=== PATIENT | female | born 1995 | race Caucasian/White ===

== ENCOUNTER 2017-10-22 14:26 | Emergency (ER) | payer OTHER ==
[~2017-10-22] VITALS: Ht 167.6 cm; Wt 55.7 kg
[2017-10-22 14:35] VITALS: Ht 167.6 cm; Wt 55.7 kg
[2017-10-22] MEDS ORDERED: SODIUM CHLORIDE 0.9% 1000ML 1,000 ML IV STA (14:45)
[2017-10-22] MEDS ORDERED: KETOROLAC TROMETHAMINE 30 MG/ML VIAL IV STA (14:45)
[2017-10-22] MEDS ORDERED: MULT-506 PO (15:02)
[2017-10-22] MEDS ORDERED: VENL150C56 PO (15:02)
[2017-10-22] MEDS ORDERED: IUD'IUD IU (15:02)
--- NOTE | 2017-10-22 15:11 | DIAGNOSTIC IMAGING REPORT ---
CHEST ONE VIEW PORTABLE CLINICAL HISTORY: 21 years-old Female presenting with Chest Pain. TECHNIQUE: Portable upright AP view of the chest was obtained. COMPARISON: 10/22/2017. FINDINGS: Cardiomediastinal silhouette normal. No focal opacity. No large effusion or pneumothorax. Osseous structures normal. Upper abdomen normal. IMPRESSION: 1. No acute cardiopulmonary disease. Electronically signed by: Javier Treviño M.D. 10/22/2017 3:10 PM Dictated Date/Time: 10/22/2017 3:09 PM
[2017-10-22 15:20] VITALS: O2SAT 100
[2017-10-22 15:47] LABS: ISTAT CREATININE 0.6 mg/dl (0.6-1.3); ISTAT IONIZED CALCIUM 1.14 mmol/l (1.12-1.32); ISTAT POTASSIUM 3.5 mEq/L (3.3-5.0)
[2017-10-22 15:48] LABS: EOS % 0.2 %; EOS ABS # 0.01 K/uL (0-0.5); HEMATOCRIT 37.4 % (37-47); HEMOGLOBIN 12.2 g/dL (12.0-16.0); IG# 0.01 K/uL (0.00-0.02); LYMPH % 24.1 %; LYMPH ABS # 1.37 K/uL (1.2-3.4); MEAN CELL VOLUME 83.5 fL (80-100); MEAN CORPUSCULAR HEMOGLOBIN 27.2 pg (25-34); MEAN CORPUSCULAR HGB CONC 32.6 g/dl (32-36); MEAN PLATELET VOLUME 9.9 fL (7.4-10.4); MONO ABS # 0.68 K/uL (0.11-0.59); NEUT % 63.5 %; NEUT ABS # 3.61 K/uL (1.4-6.5); PLATELET COUNT 209 K/uL (130-400); RED CELL DISTRIBUTION WIDTH CV 14.1 % (11.5-14.5); RED CELL DISTRIBUTION WIDTH SD 43.2 fL (36.4-46.3); WHITE BLOOD COUNT 5.68 K/uL (4.8-10.8)
[2017-10-22 16:03] LABS: BLOOD UREA NITROGEN 8 mg/dl (7-18); CALCIUM 8.7 mg/dl (8.5-10.1); CARBON DIOXIDE 28 mmol/L (21-32); CREATININE 0.79 mg/dl (0.60-1.20); GLUCOSE 72 mg/dl (70-99); POTASSIUM 3.5 mmol/L (3.5-5.1); SODIUM 140 mmol/L (136-145)
[2017-10-22] MEDS ORDERED: OPTIRAY 320 IV PRN (16:15)
--- NOTE | 2017-10-22 16:27 | DIAGNOSTIC IMAGING REPORT ---
(CHEST FOR PE) ANGIO WITH CLINICAL HISTORY: 21 years-old Female presenting with elevated d-dimer, shortness of breath, clinical concern for pulmonary embolus. TECHNIQUE: Multidetector CT angiography of the chest was performed after administration of intravenous contrast. 3-D volumetric and/or maximum intensity projection (MIP) images were subsequently reconstructed for review. IV contrast: 93 mL of Optiray 320. A dose lowering technique was used consistent with the principles of ALARA (as low as reasonably achievable). COMPARISON: Chest x-ray from earlier the same day. CT DOSE (mGy.cm): The estimated cumulative dose is 185.23 mGy.cm. FINDINGS: Documentation Improvement Specialist topogram: Unremarkable. Pulmonary vasculature: The study is adequate for assessment of the pulmonary vascular tree. No filling defect within the pulmonary arteries to suggest embolus. Main pulmonary artery is not enlarged. No flattening of the interventricular septum. No intracardiac filling defect. No reflux of contrast into the hepatic veins. Remaining chest: On soft tissue windows, normal thyroid and thoracic inlet. No axillary, supraclavicular, hilar, or mediastinal lymphadenopathy. Normal aorta. Normal heart size. Small left pleural effusion. No pericardial effusion. Upper abdomen normal. On lung windows, minimal dependent changes at the dependent left lower lobe. No other focal infiltrate or nodule. Airways patent. On bone windows, normal osseous structures. IMPRESSION: 1. No evidence of pulmonary embolus. 2. Left pleural effusion with minimal left lower lobe passive atelectasis. This is of unclear etiology. Electronically signed by: Javier Treviño M.D. 10/22/2017 4:25 PM Dictated Date/Time: 10/22/2017 4:21 PM
[2017-10-22 17:09] VITALS: BP 99/69; PULSE 80; TEMP 36.8; O2SAT 97
--- NOTE | 2017-10-22 21:07 | EMERGENCY ROOM VISIT NOTE ---
History Report prepared by Crystla: Maureen Brown Under the Supervision of: Dr. Mikey Orozco D.O. First contact with patient: 14:39 Chief Complaint: CARDIAC ASSESSMENT Stated Complaint: CHEST PAIN; HIGH D-DIMER LEVEL Nursing Triage Summary: Pt. reports left sided chest pain for last week that is worse with activity and deep breathing. Denies cough or shortness of breath. History of Present Illness The patient is a 21 year old female who presents to the Emergency Room with complaints of worsening chest pain starting 1 week ago. The pain started worsening 2 days ago. The pain is in the left side of her chest. Pain is sharp in nature. The pain worsens with movement, walking, twisting, turning, bending , and deep breaths. She had blood work today and was sent to the ED for an elevated D dimer. She denies any abdominal pain, nausea, vomiting, diarrhea, urinary symptoms, vaginal bleeding, vaginal discharge, cough, rhinorrhea, or sore throat. Her last bowel movement was yesterday. Her last menstrual period was 2 weeks ago. Patient denies diabetes, hypertension, hyperlipidemia, CAD, history of sudden at a young age, and smoking. Patient denies swelling of calves, recent trips, history of immobilization or recent surgery, prior history of DVT, hemoptysis, history of malignancy, or history of smoking. She has an IUD. She denies any recent trauma. Source of History: patient Onset: 1 week ago Position: chest (left) Timing: worsening Modifying Factors (Worsening): breathing, movement, other (walking) Associated Symptoms: No sorethroat, No cough, No nausea, No vomiting, No abdominal pain, No diarrhea, No urinary symptoms Review of Systems See HPI for pertinent positives & negatives. A total of 10 systems reviewed and were otherwise negative. Past Medical & Surgical No history of diabetes, hypertension, hyperlipidemia, CAD. Family History No family history of sudden at a young age. Social History Smoking Status: Never Smoker Occupation Status: [employer] Current/Historical Medications Scheduled Iud's (Paragard Intrauterine Digital Media Designer), 1 DOSE IU DIRECTED Multivitamin (Multivitamin), 1 TAB PO QAM Venlafaxine Hcl (Effexor Extended Rel), 150 MG PO QAM Allergies Coded Allergies: No Known Allergies (Unverified , 10/22/17) Physical Exam Vital Signs Date Time Temp Pulse Resp B/P (MAP) Pulse Ox O2 Delivery O2 Flow Rate FiO2 10/22/17 17:09 36.8 80 22 99/69 97 10/22/17 17:08 80 22 99/69 97 Room Air 10/22/17 16:32 80 22 98/59 100 Room Air 10/22/17 16:01 70 13 99 Room Air 10/22/17 16:00 91/67 10/22/17 15:31 86 15 98 Room Air 10/22/17 15:30 74 10/22/17 15:30 79 18 93/66 100 Room Air 10/22/17 15:20 100 Room Air 10/22/17 15:20 100 Room Air 10/22/17 14:35 36.8 80 20 103/69 98 Room Air Physical Exam GENERAL: Sitting up in bed, alert, well appearing, well nourished, no distress, non-toxic EYE EXAM: normal conjunctiva. PERRL and EOM's grossly intact. OROPHARYNX: no exudate, no erythema, lips, buccal mucosa, and tongue normal and mucous membranes are moist CHEST: Acute reproducible tenderness just left of the sternum and under the breast. NECK: supple, no nuchal rigidity, no adenopathy, non-tender LUNGS: Clear to auscultation. Normal chest wall mechanics HEART: no murmurs, S1 normal and S2 normal ABDOMEN: abdomen soft, non-tender, normo-active bowel sounds, no masses, no rebound or guarding. BACK: Back is symmetrical on inspection and there is no deformity, no midline tenderness, no CVA tenderness. SKIN: no rashes and no bruising UPPER EXTREMITIES: upper extremities are grossly normal. Radial pulses are equal bilateral LOWER EXTREMITIES: No pitting edema. Calves equal bilaterally. NEURO EXAM: Normal sensorium, cranial nerves II-XII grossly intact, normal speech, no gross weakness of arms, no gross weakness of legs. Ambulates without difficulty. Medical Decision & Procedures ER Provider Diagnostic Interpretation: Radiology results as stated below per my review and the radiologist's interpretation: CHEST ONE VIEW PORTABLE CLINICAL HISTORY: 21 years-old Female presenting with Chest Pain. TECHNIQUE: Portable upright AP view of the chest was obtained. COMPARISON: 10/22/2017. FINDINGS: Cardiomediastinal silhouette normal. No focal opacity. No large effusion or pneumothorax. Osseous structures normal. Upper abdomen normal. IMPRESSION: 1. No acute cardiopulmonary disease. Electronically signed by: Javier Treviño M.D. 10/22/2017 3:10 PM Dictated Date/Time: 10/22/2017 3:09 PM (CHEST FOR PE) ANGIO WITH CLINICAL HISTORY: 21 years-old Female presenting with elevated d-dimer, shortness of breath, clinical concern for pulmonary embolus. TECHNIQUE: Multidetector CT angiography of the chest was performed after administration of intravenous contrast. 3-D volumetric and/or maximum intensity projection (MIP) images were subsequently reconstructed for review. IV contrast: 93 mL of Optiray 320. A dose lowering technique was used consistent with the principles of ALARA (as low as reasonably achievable). COMPARISON: Chest x-ray from earlier the same day. CT DOSE (mGy.cm): The estimated cumulative dose is 185.23 mGy.cm. FINDINGS: Wire Welder topogram: Unremarkable. Pulmonary vasculature: The study is adequate for assessment of the pulmonary vascular tree. No filling defect within the pulmonary arteries to suggest embolus. Main pulmonary artery is not enlarged. No flattening of the interventricular septum. No intracardiac filling defect. No reflux of contrast into the hepatic veins. Remaining chest: On soft tissue windows, normal thyroid and thoracic inlet. No axillary, supraclavicular, hilar, or mediastinal lymphadenopathy. Normal aorta. Normal heart size. Small left pleural effusion. No pericardial effusion. Upper abdomen normal. On lung windows, minimal dependent changes at the dependent left lower lobe. No other focal infiltrate or nodule. Airways patent. On bone windows, normal osseous structures. IMPRESSION: 1. No evidence of pulmonary embolus. 2. Left pleural effusion with minimal left lower lobe passive atelectasis. This is of unclear etiology. Electronically signed by: Javier Treviño M.D. 10/22/2017 4:25 PM Dictated Date/Time: 10/22/2017 4:21 PM Laboratory Results 10/22/17 15:20 Red Blood Count 4.48, Mean Corpuscular Volume 83.5, Mean Corpuscular Hemoglobin 27.2, Mean Corpuscular Hemoglobin Concent 32.6, Mean Platelet Volume 9.9, Neutrophils (%) (Auto) 63.5, Lymphocytes (%) (Auto) 24.1, Monocytes (%) (Auto) 12.0, Eosinophils (%) (Auto) 0.2, Basophils (%) (Auto) 0.0, Neutrophils # (Auto ) 3.61, Lymphocytes # (Auto) 1.37, Monocytes # (Auto) 0.68, Eosinophils # (Auto ) 0.01, Basophils # (Auto) 0.00 10/22/17 15:20 Test 10/22/17 15:20 10/22/17 15:33 White Blood Count 5.68 K/uL (4.8-10.8) Red Blood Count 4.48 M/uL (4.2-5.4) Hemoglobin 12.2 g/dL (12.0-16.0) Hematocrit 37.4 % (37-47) Mean Corpuscular Volume 83.5 fL (80-100) Mean Corpuscular Hemoglobin 27.2 pg (25-34) Mean Corpuscular Hemoglobin Concent 32.6 g/dl (32-36) Platelet Count 209 K/uL (130-400) Mean Platelet Volume 9.9 fL (7.4-10.4) Neutrophils (%) (Auto) 63.5 % Lymphocytes (%) (Auto) 24.1 % Monocytes (%) (Auto) 12.0 % Eosinophils (%) (Auto) 0.2 % Basophils (%) (Auto) 0.0 % Neutrophils # (Auto) 3.61 K/uL (1.4-6.5) Lymphocytes # (Auto) 1.37 K/uL (1.2-3.4) Monocytes # (Auto) 0.68 K/uL (0.11-0.59) Eosinophils # (Auto) 0.01 K/uL (0-0.5) Basophils # (Auto) 0.00 K/uL (0-0.2) RDW Standard Deviation 43.2 fL (36.4-46.3) RDW Coefficient of Variation 14.1 % (11.5-14.5) Immature Granulocyte % (Auto) 0.2 % Immature Granulocyte # (Auto) 0.01 K/uL (0.00-0.02) Est Creatinine Clear Calc Drug Dose 99.1 ml/min Estimated GFR () 124.0 Estimated GFR (Non- 107.0 BUN/Creatinine Ratio 10.0 (10-20) Calcium Level 8.7 mg/dl (8.5-10.1) Total Creatine Kinase 94 U/L (26-192) Troponin I < 0.015 ng/ml (0-0.045) Bedside Hemoglobin 12.9 g/dl (12.0-16.0) Bedside Hematocrit 38 % (37-47) Bedside Sodium 142 mEq/L (135-144) Bedside Potassium 3.5 mEq/L (3.3-5.0) Bedside Chloride 102 mEq/L (101-112) Bedside Total CO2 26 mEq/l (24-31) Anion Gap 18.0 mmol/L (16-25) Bedside Blood Urea Nitrogen 7 mg/dl (7-18) Bedside Creatinine 0.6 mg/dl (0.6-1.3) Bedside Glucose (other) 79 mg/dl (70-99) Bedside Ionized Calcium (Sylvain) 1.14 mmol/l (1.12-1.32) Laboratory results per my review. Medications Administered Medications (Trade) Dose Ordered Sig/Lea Route Start Time Stop Time Status Last Admin Dose Admin Ketorolac Tromethamine (Toradol Inj) 30 mg NOW STAT IV 10/22/17 14:45 10/22/17 14:47 DC 10/22/17 15:21 30 MG Sodium Chloride 1,000 ml @ 999 mls/hr Q1H1M STAT IV 10/22/17 14:45 10/22/17 15:45 DC 10/22/17 15:21 999 MLS/HR ECG Per My Interpretation Indication: chest pain Rate (beats per minute): 80 Rhythm: sinus rhythm Findings: no ectopy, other (normal axis, normal intervals) ED Course ED COURSE: Vital signs were reviewed and showed normal vitals. The patients medical record was reviewed The above diagnostic studies were performed and reviewed. ED treatments and interventions as stated above. 1440: The patient was evaluated in room B6. A complete history and physical examination was performed. 1445: Sodium Chloride 1000 ml @ 999 mls/hr IV, Toradol Inj 30 mg IV. 1650: Upon reevaluation, the patient is resting comfortably. I discussed my findings with the patient and she understands and agrees with the treatment plan. Based on the patients age, coexisting illnesses, exam and lab findings the decision to treat as an outpatient was made. The patient remained stable while under my care. The patient appeared well at the time of discharge. Medical Decision Differential diagnoses includes but is not limited to acute coronary syndrome, myocardial infarction, pericarditis, pulmonary embolus, aortic dissection, pneumonia, pneumothorax, musculoskeletal, shingles, esophageal. Patient is a 21-year-old female referred in by PCP for an elevated d-dimer. She has had chest pain for the past week. It is worsened with movement, twisting turning bending and palpation. Labs were obtained and CBC along with BMP was unremarkable. Troponin was negative. Chest x-ray was unremarkable. EKG shows no ischemia. CT of the chest did show a left pleural effusion which I do believe is likely causing her pain. There is no PEs. Nothing to suggest that this is infectious. Uncertain of the true etiology. No signs of failure. No recent trauma. Prolonged conversation with patient and mother. She will follow up with PCP as an outpatient. Vitals were stable. Discussed with Pt concerning signs and symptoms to watch out for. Pt was instructed to follow up with their PCP and discussed with the patient their option to return to the ED at anytime for persistent or worsening symptoms. The appropriate anticipatory guidance and out-patient management, including indications for return to the emergency department, were explained at length to the patient and understood. Medication Reconcilliation Current Medication List: was personally reviewed by me Blood Pressure Screening Patient's blood pressure: Normal blood pressure Blood pressure disposition: Did not require urgent referral Impression Primary Impression: Pleural effusion Additional Impression: Shortness of breath Scribe Attestation The scribe's documentation has been prepared under my direction and personally reviewed by me in its entirety. I confirm that the note above accurately reflects all work, treatment, procedures, and medical decision making performed by me. Departure Information Dispostion Home / Self-Care Referrals Melyssa Lopez (PCP) Forms IMPORTANT VISIT INFORMATION Patient Instructions ED Effusion Pleural, My [facility] Additional Instructions Please follow up with your primary care doctor with in the next 24 hours. Any worsening of your symptoms, please return to the ED immediately. This includes any fevers greater than 100.4, worsening pain, chest pain, shortness breath, persistent nausea, vomiting, unable to eat or drink, or any other concerning signs or symptoms from your standpoint. Your found to have a left pleural effusion which I do believe is likely giving you your current symptoms. Please have this followed up on by her primary care doctor within the next 24-48 hours. Any worsening of your symptoms as stated above please return to ER. Problem Qualifiers
== END 2017-10-22 17:10 | disposition home or self-care (01) ==
LOC: C.EDB 14:28
DX: J90 Pleural effusion, not elsewhere classified (principal); R06.02 Shortness of breath

== ENCOUNTER → 2017-10-22 | Outpatient (CLI) | payer OTHER ==
[~2017-10-22] MED LIST: IUD'IUD IU; MULT-506 PO; VENL150C56 PO
--- NOTE | 2017-10-22 13:59 | DIAGNOSTIC IMAGING REPORT ---
CHEST 2 VIEWS ROUTINE CLINICAL HISTORY: 21 years-old Female presenting with R07.9 chest pain. TECHNIQUE: PA and lateral views of the chest were obtained. COMPARISON: . FINDINGS: Cardiomediastinal silhouette normal. Lungs and pleural spaces clear. Osseous structures normal. Upper abdomen normal. IMPRESSION: 1. No acute cardiopulmonary disease. Electronically signed by: Javier Treviño M.D. 10/22/2017 1:58 PM Dictated Date/Time: 10/22/2017 1:57 PM
== END | disposition home or self-care (01) ==
LOC: C.LAB 13:09
PROVIDERS: ATTEND Family Medicine
DX: R07.9 Chest pain, unspecified (principal)